=== PATIENT | female | born 1960 | race Caucasian/White ===

== ENCOUNTER → 2017-05-14 | Outpatient (CLI) | payer BC, MEDICARE ==
[~2017-05-14] MED LIST: CULTURELLE1 CAP PO; CYMBALTA60 MG PO; DELTASONE10 MG PO; DELTASONE20 MG PO; DEPAKOTE DELAY250 MG PO; DETROL LA4 MG PO; DITROPAN XL15 MG PO; LASIX40 MG PO; LEVAQUIN750 MG PO; NEURONTIN600 MG PO; NORCO 10-325 T1 EACH PO; ROPINIROLE HCL2 MG PO; TYLENOL325 MG PO; ULTRAM50 MG PO; VALSARTAN-HCTZ1 EACH PO; ZANTAC (NON-FO150 MG PO
== END | disposition disaster alternative care site (69) ==
LOC: GRAD 05-13 10:00
DX: R06.00 Dyspnea, unspecified (principal)
CPT/HCPCS: A9539; A9540